=== PATIENT | male | born 1985 | race Caucasian/White ===

== ENCOUNTER 2016-05-08 03:41 | Emergency (ER) | payer OTHER ==
[~2016-05-08] VITALS: Ht 170.2 cm; Wt 83.9 kg
[2016-05-08 03:41] VITALS: BP 156/86; PULSE 114; RESP 20; TEMP 99.7; O2SAT 96
[~2016-05-08 03:41] MED LIST: IBUP-1969 PO; LEVO500T20 PO
--- NOTE | 2016-05-08 03:45 | NUR ---
Patient to ER bed 3 to gown for evaluation. Side rails up. Report given to SELVIN MCKEON.
--- NOTE | 2016-05-08 04:15 | NUR ---
Pt presents to ED with c/o generalized body ache 6/10 and fever. A&Ox4, denies SOB or chestpain, denies N/V/D. Skin intact. Ambulatory. Will continue to monitor
--- NOTE | 2016-05-08 04:20 | NUR ---
MD Thomas at bedside examining pt
[2016-05-08] MEDS ORDERED: IBUPROFEN 800 MG TABLET PO ONE (04:30)
[2016-05-08 05:16] LABS: STREPTOCOCCUS A SCREEN (RAPID) POSITIVE (NEGATIVE)
[2016-05-08 05:21] LABS: INFLUENZA A&B ANTIGEN SCREEN NEGATIVE FOR A & B (NEGATIVE)
[2016-05-08] MEDS ORDERED: cefTRIAXone 1 GM VIAL IM ONE (05:30)
[2016-05-08 05:45] VITALS: BP 140/82; PULSE 92; RESP 18; TEMP 98.6; O2SAT 97
--- NOTE | 2016-05-08 05:46 | NUR ---
Patient given written and verbal discharge instructions and verbalizes understanding. ER MD Thomas discussed with patient the results and treatment provided. Patient in stable condition. ID arm band removed. Rx of motrin given. Patient educated on pain management and to follow up with PMD. Pain Scale 0/10. Opportunity for questions provided and answered.
== END 2016-05-08 05:45 | disposition home or self-care (01) ==
LOC: SED 03:41
DX: J02.0 Streptococcal pharyngitis (principal); Z88.0 Allergy status to penicillin
CPT/HCPCS: 36415; 86403; 86710; 96372; 99284; J0696

== ENCOUNTER 2016-05-09 00:03 | Emergency (ER) | payer OTHER ==
[~2016-05-09] VITALS: Ht 170.2 cm; Wt 83.9 kg
[2016-05-09 00:03] VITALS: BP_SYST 152
[2016-05-09] MEDS ORDERED: AZITHROMYCIN 250 MG TABLET PO ONE (01:00)
[2016-05-09] MEDS ORDERED: DIPHENHYDRAMINE INJ 50 MG/ML VIAL IM ONE (01:00)
[2016-05-09] MEDS ORDERED: MORPHINE SULFATE 10 MG/ML VIAL IM ONE (01:00)
[2016-05-09] MEDS ORDERED: NACL 0.9% 1,000 ML IV ONE (01:14)
[2016-05-09] MEDS ORDERED: DIPHENHYDRAMINE INJ 50 MG/ML VIAL IVP ONE (01:15)
[2016-05-09] MEDS ORDERED: MORPHINE 4 MG/ML INJ. SYRINGE IVP ONE (01:15)
[2016-05-09] MEDS ORDERED: DIPHENHYDRAMINE INJ 50 MG/ML VIAL ONE (01:23)
[2016-05-09] MEDS ORDERED: ACETAMINOPHEN 325 MG TABLET PO ONE (02:30)
[2016-05-09] MEDS ORDERED: LIDOCAINE VISCOUS 2%, 15 ML UDC MM ONE (03:45)
[2016-05-09 03:50] VITALS: BP_SYST 136
== END 2016-05-09 03:50 | disposition home or self-care (01) ==
LOC: SED 00:03
DX: R50.9 Fever, unspecified (principal)
CPT/HCPCS: 96361; 96374; 96375; 99284; J1200; J2001; J2270; J7030; Q0144

== ENCOUNTER 2017-05-29 07:31 | Emergency (ER) | payer OTHER ==
[~2017-05-29] VITALS: Ht 170.2 cm; Wt 90.7 kg
[2017-05-29 07:40] VITALS: BP_SYST 155
[2017-05-29] MEDS ORDERED: IPRATROPIUM/ALBUTEROL SULFATE 3 ML AMPUL.NEB INH ONE (08:15)
[2017-05-29 08:25] LABS: BASOPHILS # (AUTO) 0.1 K/uL (0.0-0.2); BASOPHILS % (AUTO) 0.8 % (0.0-2.0); EOSINOPHILS # (AUTO) 0.4 K/uL (0.0-0.4); EOSINOPHILS % (AUTO) 5.8 % (0.0-4.0); HEMATOCRIT 43.9 % (36-54); HEMOGLOBIN 15.1 g/dL (14.0-18.0); LYMPHOCYTES # (AUTO) 2.4 K/uL (1.0-5.5); LYMPHOCYTES % (AUTO) 37.2 % (20.5-51.5); MEAN CORPUSCULAR HEMOGLOBIN 30 pg (27-31); MEAN CORPUSCULAR HGB CONC 34 % (32-36); MEAN CORPUSCULAR VOLUME 88 fL (79.0-98.0); MONOCYTES # (AUTO) 0.5 K/uL (0.0-1.0); NEUTROPHILS # (AUTO) 2.9 K/uL (1.8-7.7); NEUTROPHILS % (AUTO) 48.2 % (40.0-70.0); PLATELET COUNT (AUTO) 286 K/uL (130-430); RED BLOOD CELL COUNT(AUTO) 4.99 MIL/uL (4.2-6.2); RED CELL DISTRIBUTION WIDTH 11.6 % (9.0-15.0); WHITE BLOOD COUNT (AUTO) 6.3 K/uL (4.8-10.8)
[2017-05-29 08:37] LABS: ANION GAP 7 (5-15); CALCIUM 9.4 mg/dL (8.4-11.0); CHLORIDE 102 mmol/L (98-107); CREATININE 0.94 mg/dL (0.55-1.30); GLUCOSE 120 mg/dL (70-99); POTASSIUM 4.4 mmol/L (3.5-5.1); SODIUM SERUM 138 mmol/L (136-145); UREA NITROGEN, BLOOD 12 mg/dL (8-21)
[2017-05-29 08:38] LABS: GFR AFRICAN AMERICAN 120 mL/min (>90)
[2017-05-29 08:39] LABS: INR 0.9 (0.80-1.20); PROTHROMBIN TIME 9.5 SECS (9.5-12.5)
[2017-05-29 08:45] LABS: ALANINE AMINOTRANSFERASE 67 U/L (12-78); ALBUMIN 3.9 g/dL (3.4-4.8); ASPARTATE AMINOTRANSFERASE 17 U/L (10-37); TOTAL BILIRUBIN 0.2 mg/dL (0.0-1.0)
[2017-05-29 09:05] VITALS: BP_SYST 128
== END 2017-05-29 09:05 | disposition home or self-care (01) ==
LOC: SED 07:31
DX: R07.89 Other chest pain (principal); R03.0 Elevated blood-pressure reading, without diagnosis of hypertension; Z88.0 Allergy status to penicillin; F17.200 Nicotine dependence, unspecified, uncomplicated
CPT/HCPCS: 36415; 71045; 80053; 83880; 84484; 85025; 85379; 85610-TC; 93005; 94640; 99285

== ENCOUNTER 2017-10-09 11:25 | Emergency (ER) | payer SELFPAY ==
[~2017-10-09] VITALS: Ht 170.2 cm; Wt 86.2 kg
[2017-10-09 11:42] VITALS: BP_SYST 151
[2017-10-09 13:02] LABS: BASOPHILS % (AUTO) 0.7 % (0.0-2.0); EOSINOPHILS # (AUTO) 0.2 K/uL (0.0-0.4); EOSINOPHILS % (AUTO) 3.8 % (0.0-4.0); HEMATOCRIT 43.6 % (36-54); HEMOGLOBIN 15.4 g/dL (14.0-18.0); LYMPHOCYTES % (AUTO) 32.1 % (20.5-51.5); MEAN CORPUSCULAR HEMOGLOBIN 31 pg (27-31); MEAN CORPUSCULAR HGB CONC 35 % (32-36); MEAN CORPUSCULAR VOLUME 89 fL (79.0-98.0); MONOCYTES # (AUTO) 0.5 K/uL (0.0-1.0); MONOCYTES % (AUTO) 8.5 % (1.7-9.3); NEUTROPHILS # (AUTO) 3.4 K/uL (1.8-7.7); NEUTROPHILS % (AUTO) 54.9 % (40.0-70.0); PLATELET COUNT (AUTO) 282 K/uL (130-430); RED CELL DISTRIBUTION WIDTH 11.8 % (9.0-15.0); WHITE BLOOD COUNT (AUTO) 6.1 K/uL (4.8-10.8)
[2017-10-09 13:13] LABS: CALCIUM 9.1 mg/dL (8.4-11.0); CREATININE 1.02 mg/dL (0.55-1.30); POTASSIUM 4.2 mmol/L (3.5-5.1)
--- NOTE | 2017-10-09 13:15 | NUR ---
Patient to ER bed H1 to gown for evaluation. Side rails up.
[2017-10-09 13:18] LABS: ALBUMIN 4.1 g/dL (3.4-4.8); TOTAL BILIRUBIN 0.3 mg/dL (0.0-1.0)
--- NOTE | 2017-10-09 13:20 | NUR ---
Pt brought by family, A&Ox4, pt presents to ER with cough and chest pain only with inspiration, VS WNL, SOB with exertion, cap refill <3, VS WNL, afebrile.
[2017-10-09 13:25] LABS: PROTHROMBIN TIME 9.8 SECS (9.5-12.5)
--- NOTE | 2017-10-09 13:45 | NUR ---
Dr Vallejo at bedside examining patient
[2017-10-09] MEDS ORDERED: IPRATROPIUM/ALBUTEROL SULFATE 3 ML AMPUL.NEB INH ONE (14:00)
--- NOTE | 2017-10-09 14:00 | NUR ---
Pt moved to room 08
--- NOTE | 2017-10-09 14:00 | NUR ---
RT at bedside
--- NOTE | 2017-10-09 14:30 | NUR ---
Pt on stable condition, VS WNL.
[2017-10-09] MEDS ORDERED: HYDROcodone/ACETAMIN 5-325 MG TAB (NORCO/ VICODIN) PO ONE (14:45)
--- NOTE | 2017-10-09 15:15 | NUR ---
Patient given written and verbal discharge instructions and verbalizes understanding. ER MD discussed with patient the results and treatment provided. Patient in stable condition. ID arm band removed. IV catheter removed intact and dressing applied, no active bleeding. No Rx of Promethazine ,Medrol ,Albuterol,Augmentin given. Patient educated on pain management and to follow up with PMD. Pain Scale 2/10 tolerable for patient . Opportunity for questions provided and answered. Medication side effect fact sheet provided.
[2017-10-09 15:19] VITALS: BP_SYST 148
--- NOTE | 2017-10-10 09:59 | NUR ---
Patient called complaining that he was given a prescription for Augmentin to which he is allergic. This was discussed with Dr. Magana, new Rx given for Bactrim Ds 1 tab PO Bid x 10 days which was called into [facility] in [place] [phone] per patient request.
== END 2017-10-09 15:19 | disposition home or self-care (01) ==
LOC: SED 11:26
DX: J20.9 Acute bronchitis, unspecified (principal); R03.0 Elevated blood-pressure reading, without diagnosis of hypertension; R74.0 Nonspecific elevation of levels of transaminase and lactic acid dehydrogenase [LDH]; F17.210 Nicotine dependence, cigarettes, uncomplicated; Z88.2 Allergy status to sulfonamides
CPT/HCPCS: 36415; 71045; 80053; 83880; 84484; 85025; 85610; 93005; 94640; 99285; J7620

== ENCOUNTER 2017-12-05 06:24 | Emergency (ER) | payer SELFPAY ==
[~2017-12-05] VITALS: Ht 170.2 cm; Wt 88.5 kg
[2017-12-05 06:45] VITALS: BP_SYST 154
--- NOTE | 2017-12-05 06:55 | NUR ---
Patient to ER bed 7 to gown for evaluation. Side rails up.
--- NOTE | 2017-12-05 07:00 | NUR ---
KAYLAN Olmstead at bedside examining patient.
--- NOTE | 2017-12-05 07:05 | NUR ---
Pt presents to ED c/o R inguinal skin induration. Pt has mild pain no acute distress noted. No med hx.
--- NOTE | 2017-12-05 07:11 | NUR ---
Patient given written and verbal discharge instructions and verbalizes understanding. ER MD discussed with patient the results and treatment provided. Patient in stable condition. ID arm band removed. Rx of Bactrim given. Patient educated on pain management and to follow up with PMD. Pain Scale 3. Opportunity for questions provided and answered. Medication side effect fact sheet provided.
[2017-12-05 07:16] VITALS: BP_SYST 154
== END 2017-12-05 07:16 | disposition home or self-care (01) ==
LOC: SED 06:24
DX: L73.8 Other specified follicular disorders (principal); Z88.0 Allergy status to penicillin
CPT/HCPCS: 99283

== ENCOUNTER 2018-02-16 20:45 | Emergency (ER) | payer SELFPAY ==
[~2018-02-16] VITALS: Ht 172.7 cm; Wt 93.0 kg
[2018-02-16 21:09] VITALS: BP_SYST 159
--- NOTE | 2018-02-16 21:09 | NUR ---
Pt placed to ER bed 05. Pt states that earlier today he was loading equipment into a truck and it slipped, so he and a work partner had to catch it. Since then he has been experiencing Right inguinal pain. Denies testicular pain or swelling.
--- NOTE | 2018-02-16 21:30 | NUR ---
Dr. Arias at bedside to examine pt.
[2018-02-16] MEDS ORDERED: KETOROLAC TROMETHAMINE 60 MG/2 ML VIAL IM ONE (22:00)
--- NOTE | 2018-02-16 22:11 | NUR ---
Pt to CT via W/C.
--- NOTE | 2018-02-16 22:21 | NUR ---
Pt returns from CT.
[2018-02-16 22:22] LABS: BILIRUBIN,URINE NEGATIVE (NEGATIVE); BLOOD, URINE NEGATIVE (NEGATIVE); CLARITY/URINE CLEAR (CLEAR); COLOR,URINE YELLOW (YELLOW); GLUCOSE,URINE NEGATIVE (NEGATIVE); KETONES,URINE NEGATIVE (NEGATIVE); LEUKOCYTE ESTERASE ,URINE NEGATIVE (NEGATIVE); NITRITE, URINE NEGATIVE (NEGATIVE); PROTEIN URINE NEGATIVE (NEGATIVE); UROBILINOGEN,URINE 0.2 (0.2-1.0)
--- NOTE | 2018-02-16 23:30 | NUR ---
Pt c/o pain 07/06. Offered pain medication, but states pain is tolerable and will get his Rx filled.
[2018-02-16 23:45] VITALS: BP_SYST 140
--- NOTE | 2018-02-16 23:45 | NUR ---
Patient given written and verbal discharge instructions and verbalizes understanding. ER MD discussed with patient the results and treatment provided. Patient in stable condition. ID arm band removed. Rx of Flexeril, Ibuprofen, [place] given. Patient educated on pain management and to follow up with PMD. Pain Scale 5/10. Opportunity for questions provided and answered. Medication side effect fact sheet provided.
== END 2018-02-16 23:45 | disposition home or self-care (01) ==
LOC: SED 20:45
DX: S39.011A Strain of muscle, fascia and tendon of abdomen, initial encounter (principal); R03.0 Elevated blood-pressure reading, without diagnosis of hypertension; Z88.0 Allergy status to penicillin; X50.0XXA Overexertion from strenuous movement or load, initial encounter; Y93.89 Activity, other specified; Y92.89 Other specified places as the place of occurrence of the external cause; Y99.8 Other external cause status
CPT/HCPCS: 74176; 81003; 96372; 99284; J1885; 99285

== ENCOUNTER 2018-05-06 13:17 | Emergency (ER) | payer MEDICAID ==
[~2018-05-06] VITALS: Ht 172.7 cm; Wt 95.3 kg
[2018-05-06 13:17] VITALS: BP_SYST 126
[2018-05-06 14:44] LABS: BASOPHILS % (AUTO) 0.9 % (0.0-2.0); EOSINOPHILS # (AUTO) 0.2 K/uL (0.0-0.4); HEMATOCRIT 45.3 % (36-54); HEMOGLOBIN 15.7 g/dL (14.0-18.0); LYMPHOCYTES # (AUTO) 2.3 K/uL (1.0-5.5); LYMPHOCYTES % (AUTO) 39.6 % (20.5-51.5); MEAN CORPUSCULAR HEMOGLOBIN 31 pg (27-31); MEAN CORPUSCULAR HGB CONC 35 % (32-36); MEAN CORPUSCULAR VOLUME 89 fL (79.0-98.0); MONOCYTES # (AUTO) 0.5 K/uL (0.0-1.0); MONOCYTES % (AUTO) 8.3 % (1.7-9.3); NEUTROPHILS # (AUTO) 2.7 K/uL (1.8-7.7); NEUTROPHILS % (AUTO) 47.2 % (40.0-70.0); PLATELET COUNT (AUTO) 308 K/uL (130-430); RED CELL DISTRIBUTION WIDTH 12.4 % (9.0-15.0); WHITE BLOOD COUNT (AUTO) 5.7 K/uL (4.8-10.8)
[2018-05-06 14:45] LABS: BASOPHILS # (AUTO) 0.1 K/uL (0.0-0.2); CALCIUM 9.1 mg/dL (8.4-11.0); CREATININE 0.79 mg/dL (0.55-1.30); POTASSIUM 4.1 mmol/L (3.5-5.1)
[2018-05-06 14:50] LABS: ALBUMIN 4.3 g/dL (3.4-4.8); TOTAL BILIRUBIN 0.4 mg/dL (0.0-1.0)
[2018-05-06 15:30] VITALS: BP_SYST 131
== END 2018-05-06 15:30 | disposition home or self-care (01) ==
LOC: SED 13:17
DX: G56.03 Carpal tunnel syndrome, bilateral upper limbs (principal); Z88.0 Allergy status to penicillin; Z79.899 Other long term (current) drug therapy
CPT/HCPCS: 36415; 80053; 85025; 99283

== ENCOUNTER 2019-11-13 05:18 | Emergency (ER) | payer SELFPAY ==
[~2019-11-13] VITALS: Ht 170.2 cm; Wt 97.5 kg
[2019-11-13 05:31] VITALS: BP_SYST 153
--- NOTE | 2019-11-13 05:31 | NUR ---
Patient to ER bed 3 to gown for evaluation. Side rails up.
--- NOTE | 2019-11-13 05:32 | NUR ---
Patient came to ER. C/O Chest wall pain x 2 days. Patient states " had left chest pain for 2 days, on and off, no heart problems." AA/O,X4, left chest pain, pain rate 7/10, Stat EKG at bedside and place patient on night monitor and pulse ox.
--- NOTE | 2019-11-13 05:39 | NUR ---
ER Dr. Encinas at bedside examining patient.
[2019-11-13] MEDS ORDERED: ASPIRIN 81 MG TAB.CHEW PO ONE (05:45)
--- NOTE | 2019-11-13 05:47 | NUR ---
Blood for labwork drawn from vehicle body maker. Patient tolerated well.
[2019-11-13 06:04] LABS: LYMPHOCYTES # (AUTO) 3.7 K/uL (1.0-5.5)
[2019-11-13] MEDS ORDERED: ASPIRIN 81 MG TAB.CHEW ONE (06:07)
[2019-11-13 06:08] LABS: BASOPHILS # (AUTO) 0.1 K/uL (0.0-0.2); BASOPHILS % (AUTO) 1.3 % (0.0-2.0); EOSINOPHILS # (AUTO) 0.4 K/uL (0.0-0.4); EOSINOPHILS % (AUTO) 3.8 % (0.0-4.0); HEMATOCRIT 40.8 % (36-54); HEMOGLOBIN 14.7 g/dL (14.0-18.0); LYMPHOCYTES % (AUTO) 39.6 % (20.5-51.5); MEAN CORPUSCULAR HEMOGLOBIN 31 pg (27-31); MEAN CORPUSCULAR HGB CONC 36 % (32-36); MEAN CORPUSCULAR VOLUME 87 fL (79.0-98.0); MONOCYTES # (AUTO) 0.7 K/uL (0.0-1.0); MONOCYTES % (AUTO) 7.3 % (1.7-9.3); NEUTROPHILS # (AUTO) 4.5 K/uL (1.8-7.7); PLATELET COUNT (AUTO) 235 K/uL (130-430); RED BLOOD CELL COUNT(AUTO) 4.66 MIL/uL (4.2-6.2); RED CELL DISTRIBUTION WIDTH 12.7 % (9.0-15.0); WHITE BLOOD COUNT (AUTO) 9.3 K/uL (4.8-10.8)
--- NOTE | 2019-11-13 06:08 | NUR ---
X-ray at bedside.
[2019-11-13 06:12] LABS: CREATININE 0.93 mg/dL (0.55-1.30); POTASSIUM 3.5 mmol/L (3.5-5.1)
[2019-11-13 06:18] LABS: ALBUMIN 4.1 g/dL (3.4-4.8); TOTAL BILIRUBIN 0.4 mg/dL (0.0-1.0)
--- NOTE | 2019-11-13 07:08 | NUR ---
Patient given written and verbal discharge instructions and verbalizes understanding. ER MD discussed with patient the results and treatment provided. Patient in stable condition. ID arm band removed. No Rx given. Patient educated on pain management and to follow up with PMD. Pain Scale 0/10. Opportunity for questions provided and answered. Medication side effect fact sheet provided.
[2019-11-13 07:09] VITALS: BP_SYST 133
== END 2019-11-13 07:08 | disposition home or self-care (01) ==
LOC: SED 05:18
DX: R07.89 Other chest pain (principal)
CPT/HCPCS: 36415; 71045; 80053; 83880; 84484; 85025; 93005; 99285

== ENCOUNTER 2020-12-22 19:52 | Inpatient (IN) | payer BC, SELFPAY ==
[~2020-12-22] VITALS: Ht 170.2 cm; Wt 81.6 kg
[2020-12-22 20:12] VITALS: BP_SYST 154; BP_SYST 163
[2020-12-22] MEDS ORDERED: ASCO500T20 PO (20:18)
--- NOTE | 2020-12-22 21:09 | NUR ---
Placed in room 08.Placed on bar back, blood pressure machine and pulse oximeter. To gown for exam. Side rails up. Report given to MARISEL.
--- NOTE | 2020-12-22 21:09 | NUR ---
PT ARRIVED IN ER WITH COMPLAINTS OF UPPER EPIGASTRIC PAIN SINCE 1400 TODAY AFTER LUNCH. THIS IS THE FIRST TIME HE HAS THE PAIN. - ABDOMINAL PAIN HISTORY. PT STATES HE HAS NAUSEA AND ONE EPISODE OF VOMITING TODAY. 12/06 PAIN. NO OTHER COMPLAINSTS AT THIS TIME
--- NOTE | 2020-12-22 22:40 | NUR ---
ER Dr. GROSSMAN at bedside examining patient.
[2020-12-22] MEDS ORDERED: MORPHINE 4 MG INJ. 4 MG/ML VIAL IVP ONE (23:00)
[2020-12-22] MEDS ORDERED: NACL 0.9% 1,000 ML IV ONE (23:00)
[2020-12-22] MEDS ORDERED: ONDANSETRON HCL 4 MG/2 ML VIAL IVP ONE (23:00)
[2020-12-22] MEDS ORDERED: KETOROLAC TROMETHAMINE 30 MG VIAL IVP ONE (23:00)
--- NOTE | 2020-12-22 23:21 | NUR ---
# 20 gauge angiocath placed to RAC. Use of asceptic technique. Opsite placed over site. Blood return noted. Blood for lab drawn from site. Flushed with 10 cc of normal saline. No evidence of infiltration noted. Patient tolerated well.
[2020-12-22 23:36] LABS: BILIRUBIN,URINE NEGATIVE (NEGATIVE); BLOOD, URINE NEGATIVE (NEGATIVE); CLARITY/URINE CLEAR (CLEAR); COLOR,URINE YELLOW (YELLOW); GLUCOSE,URINE 3+ (NEGATIVE); KETONES,URINE 2+ (NEGATIVE); LEUKOCYTE ESTERASE ,URINE NEGATIVE (NEGATIVE); NITRITE, URINE NEGATIVE (NEGATIVE); PROTEIN URINE TRACE (NEGATIVE); UROBILINOGEN,URINE 0.2 (0.2-1.0)
--- NOTE | 2020-12-22 23:45 | NUR ---
US at bedside
[2020-12-22 23:48] LABS: BACTERIA,URINE FEW /HPF (None Seen); RBC,URINE 0-3 /HPF (0-3); WBC,URINE NONE SEEN /HPF (0-3)
[2020-12-23 00:07] LABS: ALBUMIN 3.6 g/dL (3.4-4.8); CALCIUM 8.3 mg/dL (8.4-11.0); POTASSIUM 3.3 mmol/L (3.5-5.1); TOTAL BILIRUBIN 0.7 mg/dL (0.0-1.0)
[2020-12-23 00:10] LABS: BASOPHILS # (AUTO) 0.1 K/uL (0.0-0.2); BASOPHILS % (AUTO) 0.5 % (0.0-2.0); EOSINOPHILS # (AUTO) 0.4 K/uL (0.0-0.4); EOSINOPHILS % (AUTO) 3.6 % (0.0-4.0); HEMATOCRIT 38.7 % (36-54); HEMOGLOBIN 13.9 g/dL (14.0-18.0); LYMPHOCYTES # (AUTO) 1.9 K/uL (1.0-5.5); MEAN CORPUSCULAR HEMOGLOBIN 32 pg (27-31); MEAN CORPUSCULAR HGB CONC 36 % (32-36); MEAN CORPUSCULAR VOLUME 88 fL (79.0-98.0); MONOCYTES # (AUTO) 0.7 K/uL (0.0-1.0); MONOCYTES % (AUTO) 6.6 % (1.7-9.3); NEUTROPHILS # (AUTO) 7.1 K/uL (1.8-7.7); NEUTROPHILS % (AUTO) 70.3 % (40.0-70.0); RED BLOOD CELL COUNT(AUTO) 4.38 MIL/uL (4.2-6.2); WHITE BLOOD COUNT (AUTO) 10.1 K/uL (4.8-10.8)
[2020-12-23 00:19] LABS: PLATELET COUNT (AUTO) 209 K/uL (130-430)
[2020-12-23 00:53] LABS: CREATININE 0.84 mg/dL (0.55-1.30)
[2020-12-23] MEDS ORDERED: MORPHINE 2 MG/ML INJ. SYRINGE IVP ONE ×2 (01:15→02:00)
[2020-12-23] MEDS ORDERED: MORPHINE 4 MG INJ. 4 MG/ML VIAL IVP ONE (03:00)
[2020-12-23] MEDS ORDERED: ONDANSETRON HCL 4 MG/2 ML VIAL IVP PRN (03:00)
--- NOTE | 2020-12-23 03:01 | NUR ---
Patient will be admitted to care of [facility]. Admitted to TELE unit. PENDING ROOM ASSIGNMENT. Belongings list completed. Complete and up to date summary report printed. SBAR report to be given at bedside with opportunity for questions.
[2020-12-23] MEDS ORDERED: NACL 0.9% 1,000 ML IV ONE (03:15)
[2020-12-23] MEDS: KCL 20 mEq in D5/0.45NS 1000mL 1,000 ML IV SCH ×3 (04:13→22:49)
--- NOTE | 2020-12-23 05:57 | NUR ---
PT IS SLEEPING IN BED, AWARE OF THE ADMIT. VSS.
[2020-12-23] MEDS: MORPHINE 4 MG INJ. 4 MG/ML VIAL IVP PRN ×4 (07:24→22:50)
--- NOTE | 2020-12-23 07:34 | NUR ---
Medication reconciliation completed with information provided by pt. Any prior medication reconciliation on file was reviewed and corrected.
[2020-12-23 08:28] VITALS: BP_SYST 143
--- NOTE | 2020-12-23 08:30 | NUR ---
Patient will be admitted to care of . Admitted to medsurg unit. Will go to room 8. Belongings list completed. Complete and up to date summary report printed. SBAR report given at bedside with Zamzam opportunity for questions.
--- NOTE | 2020-12-23 08:35 | NUR ---
ADMITTED VIA GURNEY A 35 YEAR OLD MALE FOR ABDOMINAL PAIN. VITALS SIGNS STABLE. AFEBRILE. HAS IV ACCESS ON THE RT AC #20. RUNNING BOTH NORMAL SALINE AND POTASSIUM IV FLUIDS. ORIENTED TO THE ROOM. CALL LIGHTS WITHIN REACH. BED LOW POSITION, ALARMED AND LOCKED. WILL CONTINUE TO MONITOR PATIENTS STATUS.
[2020-12-23] MEDS: PANTOPRAZOLE SODIUM 40 MG/VIAL (PROTONIX) IVP SCH ×2 (09:53→20:27)
--- NOTE | 2020-12-23 11:00 | NUR ---
ADMISSION DATA DONE. ADMISSION ASSESSMENT DONE.
[2020-12-23 13:05] VITALS: BP_SYST 133
[2020-12-23 13:14] VITALS: BP_SYST 138
[2020-12-23] MEDS ORDERED: THIAMINE HCL 100 MG TABLET PO ONE (14:00)
[2020-12-23 16:50] VITALS: BP_SYST 130
[2020-12-23 17:57] VITALS: BP_SYST 129
--- NOTE | 2020-12-23 18:49 | NUR ---
PATIENT AAO 4. HAS IV ACCESS ON THE RT ac #20 potassium iv at 100cc/hr infusing on well. able to eat by himself. another urinal given at this time. endorsed to incoming nurse.
--- NOTE | 2020-12-23 19:10 | NUR ---
OPENING NOTES PATIENT RESTING, NO SIGNS OF DISTRESS NOTED. CALL LIGHT WITHIN REACH, PATIENT DEMONSTRATES PROPER USAGE OF CALL LIGHT, BED ALARM OFF PER PATIENT REQUEST, BED AT LOWEST POSITION, BED LOCKED. FALL, RESPIRATORY, ASPIRATION AND SAFETY PRECAUTIONS IN PLACE. DISCUSSED PLAN OF CARE WITH PATIENT. WILL CONTINUE TO MONITOR.
[2020-12-23 20:00] VITALS: BP_SYST 148
[2020-12-23] MEDS: ENOXAPARIN SODIUM 40 MG/0.4 ML SYRINGE SUBCUT SCH (20:30)
--- NOTE | 2020-12-23 23:26 | NUR ---
PATIENT PROVIDED WITH JELLOS AND APPLE JUICE. NO OTHER NEEDS AT THIS TIME. WILL CONTINUE TO MONITOR.
[2020-12-24] VITALS: BP_SYST 124
[2020-12-24] MEDS: MORPHINE 4 MG INJ. 4 MG/ML VIAL IVP PRN ×4 (05:59→22:10)
--- NOTE | 2020-12-24 06:57 | NUR ---
CLOSING NOTES PATIENT RESTING, NO SIGNS OF DISTRESS NOTED. CALL LIGHT WITHIN REACH, BED ALARM OFF PER PATIENT REQUEST, BED AT LOWEST POSITION, BED LOCKED. FALL, ASPIRATION, RESPIRATORY, AND SAFETY PRECAUTIONS IN PLACE THROUGHOUT SHIFT. ALL NEEDS MET THROUGHOUT SHIFT. WILL ENDORSE CARE TO ONCOMING SHIFT.
--- NOTE | 2020-12-24 07:32 | NUR ---
PATIENT AAOX 4. LUNGS BILATERALLY CLEAR. ABDOMEN SOFT AND NON DISTENDED. STILL HAS IV ACCESS ON THE RT AC 20 WITH D51/2NS +20KCL MEQ AT 100CC/HR INFUSING ON WELL. CALL LIGHTS WITHIN REACH. BED LOW POSITION, ALARMED AND LOCKED. VITALS SIGNS STABLE. AFEBRILE. WILL CONTINUE TO MONITOR PATIENTS STATUS.
[2020-12-24 07:48] LABS: CALCIUM 7.7 mg/dL (8.4-11.0); CREATININE 0.67 mg/dL (0.55-1.30); PHOSPHORUS 2.5 mg/dL (2.7-4.5); POTASSIUM 3.4 mmol/L (3.5-5.1)
[2020-12-24] MEDS: THIAMINE HCL 100 MG TABLET PO SCH (08:19)
[2020-12-24] MEDS: PANTOPRAZOLE SODIUM 40 MG/VIAL (PROTONIX) IVP SCH ×2 (08:19→21:11)
[2020-12-24] MEDS: KCL 20 mEq in D5/0.45NS 1000mL 1,000 ML IV SCH ×2 (08:33→21:13)
[2020-12-24 08:35] LABS: HEMATOCRIT 35.3 % (36-54); MEAN CORPUSCULAR VOLUME 86 fL (79.0-98.0); PLATELET COUNT (AUTO) 299 K/uL (130-430); RED BLOOD CELL COUNT(AUTO) 4.08 MIL/uL (4.2-6.2); RED CELL DISTRIBUTION WIDTH 13.3 % (9.0-15.0); WHITE BLOOD COUNT (AUTO) 11.9 K/uL (4.8-10.8)
[2020-12-24 09:03] VITALS: BP_SYST 121
[2020-12-24 09:32] LABS: HEMOGLOBIN 11.8 g/dL (14.0-18.0); MEAN CORPUSCULAR HEMOGLOBIN 29 pg (27-31)
[2020-12-24 09:33] LABS: MEAN CORPUSCULAR HGB CONC 33 % (32-36)
[2020-12-24] MEDS: chlordiazePOXIDE HCL 25 MG CAPSULE PO PRN ×2 (11:49→18:28)
--- NOTE | 2020-12-24 11:51 | NUR ---
patient had a shower. But patient is still in pain. Laying on bed and appears comfortable. Morphine 4mg IV given. And librium tablet was refused.
[2020-12-24 12:00] VITALS: BP_SYST 128
[2020-12-24 14:15] LABS: BASOPHILS % (MANUAL) 0 % (0-2); EOSINOPHILS % (MANUAL) 1 % (0-7); LYMPHOCYTES % (MANUAL) 13 % (20-46); MONOCYTES % (MANUAL) 10 % (0-11)
[2020-12-24] MEDS ORDERED: ACETAMINOPHEN 325 MG TABLET PO PRN (17:45)
--- NOTE | 2020-12-24 18:00 | NUR ---
ZOZYN IV GIVEN. TYLENOL 2 TABS GIVEN. AND LIBRIUM TABLET GIVEN.
[2020-12-24 18:02] VITALS: BP_SYST 150
--- NOTE | 2020-12-24 18:20 | NUR ---
DR MEDEL CAME EVALUATE PATIENTS STATUS.
[2020-12-24] MEDS: PIPERACILLIN/TAZO 3.375/DEX-IS 50 ML IV SCH (18:27)
--- NOTE | 2020-12-24 18:40 | NUR ---
BLOOD CULTURE DONE. NEED URINE FOR CULTURE.
[2020-12-24] MEDS ORDERED: POTASSIUM CHLORIDE 20 MEQ TAB.PRT.SR PO ONE (19:30)
--- NOTE | 2020-12-24 19:36 | NUR ---
ENDORSED TO INCOMING NURSE YISEL MCKEON. LATEST TEMP 97.4. ICE PACKS ON THE HEAD AND ON ARMPIT
[2020-12-24 20:00] VITALS: BP_SYST 132
--- NOTE | 2020-12-24 20:35 | NUR ---
SPOKE TO DR. MEDEL, RECEIVED NEW ORDERS OF DILAUDID 2MG IVP Q4P SEVERE AND TO DISCONTINUE MORPHINE AND CHANGE PATIENT STATUS TO TELE.
--- NOTE | 2020-12-24 20:40 | NUR ---
HIGH ALERT NOTE: Called Dr. MEDEL back at [phone] identified within the medical roster to verify physician authenticity.
[2020-12-24] MEDS ORDERED: HYDROmorphone 2 MG/ML VIAL IVP PRN (20:45)
[2020-12-24] MEDS: ENOXAPARIN SODIUM 40 MG/0.4 ML SYRINGE SUBCUT SCH (21:26)
--- NOTE | 2020-12-24 21:38 | NUR ---
COMMUNICATION W/ DR. GIANFRANCO MEDEL HAS PAGED BACK AT THIS TIME, HE WAS MADE AWARE THAT PATIENT VERBALIZED HE DOES NOT WANT DILAUDID FOR PAIN MEDICATION, OR TO BE PUT ON TELEMETRY UNIT, AND ALSO THAT HE WOULD LIKE TO HAVE THE SAME MORPHINE DOSE HE WAS GETTING EARLIER FOR HIS PAIN. DR. MEDEL AGREED, MD ORDERED TO D/C DILAUDID AND KEEP PATIENT ON MED-SURG UNIT, MD ALSO ORDERED MORPHINE 4 MG IVP Q4H PRN SEVERE PAIN. ALL ORDERS READ BACK, VERIFIED, AND ENTERED. PATIENT AND CHARGE NURSE WILL BE NOTIFIED.
--- NOTE | 2020-12-24 23:11 | NUR ---
PATIENT RESTING, NO SIGNS OF DISTRESS NOTED. PATIENT SITTING UP, ICE CHIPS AND WATER PROVIDED. WILL CONTINUE TO MONITOR.
[2020-12-25] VITALS: BP_SYST 126
[2020-12-25] MEDS: PIPERACILLIN/TAZO 3.375/DEX-IS 50 ML IV SCH ×5 (01:19→23:09)
[2020-12-25] MEDS: KCL 20 mEq in D5/0.45NS 1000mL 1,000 ML IV SCH ×2 (05:00→20:34)
[2020-12-25] MEDS: MORPHINE 4 MG INJ. 4 MG/ML VIAL IVP PRN ×5 (05:47→22:37)
[2020-12-25 06:20] LABS: BASOPHILS # (AUTO) 0.1 K/uL (0.0-0.2); BASOPHILS % (AUTO) 0.7 % (0.0-2.0); EOSINOPHILS # (AUTO) 0.3 K/uL (0.0-0.4); EOSINOPHILS % (AUTO) 2.5 % (0.0-4.0); HEMATOCRIT 35.8 % (36-54); HEMOGLOBIN 12.7 g/dL (14.0-18.0); LYMPHOCYTES # (AUTO) 1.1 K/uL (1.0-5.5); LYMPHOCYTES % (AUTO) 10.4 % (20.5-51.5); MEAN CORPUSCULAR HEMOGLOBIN 31 pg (27-31); MEAN CORPUSCULAR HGB CONC 36 % (32-36); MEAN CORPUSCULAR VOLUME 89 fL (79.0-98.0); MONOCYTES # (AUTO) 0.8 K/uL (0.0-1.0); MONOCYTES % (AUTO) 7.1 % (1.7-9.3); NEUTROPHILS # (AUTO) 8.5 K/uL (1.8-7.7); NEUTROPHILS % (AUTO) 79.3 % (40.0-70.0); PLATELET COUNT (AUTO) 206 K/uL (130-430); RED BLOOD CELL COUNT(AUTO) 4.03 MIL/uL (4.2-6.2); WHITE BLOOD COUNT (AUTO) 10.8 K/uL (4.8-10.8)
--- NOTE | 2020-12-25 07:06 | NUR ---
CLOSING NOTES PATIENT RESTING, NO FEVER NOTED. CALL LIGHT WITHIN REACH, BED ALARM OFF PER PATIENT REQUEST, BED AT LOWEST POSITION, BED LOCKED. FALL, ASPIRATION, RESPIRATORY, AND SAFETY PRECAUTIONS IN PLACE THROUGHOUT SHIFT. ALL NEEDS MET THROUGHOUT SHIFT. WILL ENDORSE CARE TO ONCOMING SHIFT.
[2020-12-25 08:00] VITALS: BP_SYST 111
--- NOTE | 2020-12-25 08:00 | NUR ---
NOTES PATIENT AAOX 4. VITALS SIGNS STABLE. AFEBRILE. STILL HAS IV ACCESS ON THE RT AC. D51/2 NS +KCL 20MEQ AT 100CC/HR INFUSING ON WELL. CALL LIGHTS WITHIN REACH. BED LOW POSITION, ALARMED AND LOCKED. WILL CONTINUE
[2020-12-25] MEDS: PANTOPRAZOLE SODIUM 40 MG/VIAL (PROTONIX) IVP SCH ×2 (08:13→20:34)
[2020-12-25] MEDS: THIAMINE HCL 100 MG TABLET PO SCH (08:13)
[2020-12-25 08:32] LABS: CREATININE 0.74 mg/dL (0.55-1.30); POTASSIUM 3.5 mmol/L (3.5-5.1)
[2020-12-25 12:00] VITALS: BP_SYST 123
--- NOTE | 2020-12-25 18:00 | NUR ---
ZOZYN IV GIVEN. MADE COMFORTABLE. PAIN MED GIVEN
--- NOTE | 2020-12-25 19:20 | NUR ---
ENDORSED TO JOE MCKEON.
--- NOTE | 2020-12-25 19:30 | NUR ---
OPENING NOTE PATIENT IN BED WITH RESPIRATIONS EVEN AND UNLABORED ON RA. PT C/O FEELING "HOT". TEMPERATURE TAKEN AND WNL. ICE PACKS GIVEN AND PLACED UNDER ARMPITS FOR COOLING MEASURES. PT TOLERATED WELL. BED IN LOWEST AND LOCKED POSITION. AT BEDSIDE. CALL LIGHT WITHIN REACH. WILL CONTINUE TO MONITOR.
[2020-12-25 19:51] VITALS: BP_SYST 118
[2020-12-25 20:00] VITALS: BP_SYST 132
[2020-12-25] MEDS: ENOXAPARIN SODIUM 40 MG/0.4 ML SYRINGE SUBCUT SCH (21:16)
[2020-12-26] VITALS: BP_SYST 108
--- NOTE | 2020-12-26 02:45 | NUR ---
PRN PAIN MEDICATION ADMINISTERED PT TOLERATED WELL. WILL CONTINUE TO MONITOR.
[2020-12-26] MEDS: MORPHINE 4 MG INJ. 4 MG/ML VIAL IVP PRN ×5 (02:48→22:37)
--- NOTE | 2020-12-26 04:37 | NUR ---
ROUNDS PT IN BED WITH EYES CLOSED. RESPIRATIONS EVEN AND UNLABORED. IVF RUNNING. WILL CONTINUE TO MONITOR.
[2020-12-26] MEDS: KCL 20 mEq in D5/0.45NS 1000mL 1,000 ML IV SCH (05:23)
[2020-12-26] MEDS: PIPERACILLIN/TAZO 3.375/DEX-IS 50 ML IV SCH ×3 (05:23→17:50)
--- NOTE | 2020-12-26 07:30 | NUR ---
PATIENT IN BED, NO S/S OF DISTRESS, PATIENT STATES HE IS IN PAIN, WILL PROVIDE PAIN COVERAGE ORDERED/NEEDED, FULL LIQUID DIET, A/OX4, IV INTACT, SAFETY MEASURES IN PLACE, BED IN LOWEST LOCKED POSITION, BED ALARM ON, WILL CONTINUE TO MONITOR.
[2020-12-26 07:32] LABS: BASOPHILS # (AUTO) 0.1 K/uL (0.0-0.2); BASOPHILS % (AUTO) 1.7 % (0.0-2.0); EOSINOPHILS # (AUTO) 0.5 K/uL (0.0-0.4); EOSINOPHILS % (AUTO) 6.3 % (0.0-4.0); HEMATOCRIT 36.2 % (36-54); LYMPHOCYTES # (AUTO) 1.5 K/uL (1.0-5.5); LYMPHOCYTES % (AUTO) 19.6 % (20.5-51.5); MEAN CORPUSCULAR HEMOGLOBIN 32 pg (27-31); MEAN CORPUSCULAR HGB CONC 36 % (32-36); MEAN CORPUSCULAR VOLUME 88 fL (79.0-98.0); MONOCYTES # (AUTO) 0.7 K/uL (0.0-1.0); MONOCYTES % (AUTO) 8.8 % (1.7-9.3); NEUTROPHILS % (AUTO) 63.6 % (40.0-70.0); PLATELET COUNT (AUTO) 224 K/uL (130-430); RED CELL DISTRIBUTION WIDTH 12.7 % (9.0-15.0); WHITE BLOOD COUNT (AUTO) 7.8 K/uL (4.8-10.8)
--- NOTE | 2020-12-26 07:39 | NUR ---
closing note pt stable in bed. no signs of distress noted. will endorse to day rn.
[2020-12-26 08:00] VITALS: BP_SYST 103
[2020-12-26] MEDS: THIAMINE HCL 100 MG TABLET PO SCH (08:47)
[2020-12-26] MEDS: PANTOPRAZOLE SODIUM 40 MG/VIAL (PROTONIX) IVP SCH ×2 (08:47→21:17)
[2020-12-26 11:04] LABS: CALCIUM 8.6 mg/dL (8.4-11.0); CREATININE 0.86 mg/dL (0.55-1.30); POTASSIUM 3.8 mmol/L (3.5-5.1)
[2020-12-26 12:00] VITALS: BP_SYST 112
--- NOTE | 2020-12-26 13:10 | NUR ---
PATIENT BROUGHT CLEAN LINENS AND CHANGED BED WHILE PATIENT SHOWERED, TOLERATED WELL, BACK IN BED, MORPHINE GIVEN FOR ABDOMINAL PAIN, NO NEEDS AT THIS TIME
[2020-12-26 16:00] VITALS: BP_SYST 119
[2020-12-26] MEDS: NACL 0.9% 1,000 ML IV SCH (18:40)
--- NOTE | 2020-12-26 19:23 | NUR ---
PATIENT IN BED, NO S/S OF DISTRESS, IV INTACT PATENT RUNNING NS AT 75ML/HR, ENDORSING CONTINUATION OF CARE TO RECORD SEARCHER.
[2020-12-26 20:00] VITALS: BP_SYST 112
--- NOTE | 2020-12-26 20:00 | NUR ---
Opening notes Pt AAOx4, VSS, no s/s distress noted. Informed pt pain med due at 10pm. Call light within reach. Bed low, locked, siderail up x2. Pt ambulates to bathroom, steady gait. To monitor.
[2020-12-26] MEDS: ENOXAPARIN SODIUM 40 MG/0.4 ML SYRINGE SUBCUT SCH (21:19)
--- NOTE | 2020-12-26 22:30 | NUR ---
IV RE-INSERTION: Redness to IV site noted. Restarted on L.FA 22G. Successful after x1 attempt. Resumed current IVF of NS and regulated @ 75cc per hour. Will observe for any signs of infiltration. DC'd IV R.AC no bleeding noted.
--- NOTE | 2020-12-26 22:37 | NUR ---
Pain med Pt c/o abd pain 09/05. Pt medicated with Morphine 4mg IVP R. FA 22G as needed. Call light within reach. To monitor.
[2020-12-27] MEDS: PIPERACILLIN/TAZO 3.375/DEX-IS 50 ML IV SCH ×4 (00:17→18:00)
[2020-12-27 00:24] VITALS: BP_SYST 111
[2020-12-27] MEDS: MORPHINE 4 MG INJ. 4 MG/ML VIAL IVP PRN ×5 (02:37→18:52)
--- NOTE | 2020-12-27 06:52 | NUR ---
Closing notes Pt c/o pain R. lower abd throbbing pain, medicated with Morphine 4mg as needed. IVF infusing at ordered rate R.FA 22G clear and patent. Pt maintained Full liquid diet. Call light within reach. To endorse to AM nurse.
[2020-12-27] MEDS: NACL 0.9% 1,000 ML IV SCH (07:20)
[2020-12-27 08:00] VITALS: BP_SYST 114
[2020-12-27 08:14] LABS: BASOPHILS % (AUTO) 0.5 % (0.0-2.0); EOSINOPHILS # (AUTO) 0.4 K/uL (0.0-0.4); HEMOGLOBIN 12.6 g/dL (14.0-18.0); LYMPHOCYTES # (AUTO) 1.4 K/uL (1.0-5.5); LYMPHOCYTES % (AUTO) 19.8 % (20.5-51.5); MEAN CORPUSCULAR HEMOGLOBIN 31 pg (27-31); MEAN CORPUSCULAR HGB CONC 35 % (32-36); MEAN CORPUSCULAR VOLUME 89 fL (79.0-98.0); MONOCYTES # (AUTO) 0.7 K/uL (0.0-1.0); MONOCYTES % (AUTO) 10.3 % (1.7-9.3); NEUTROPHILS # (AUTO) 4.6 K/uL (1.8-7.7); NEUTROPHILS % (AUTO) 63.4 % (40.0-70.0); PLATELET COUNT (AUTO) 248 K/uL (130-430); RED BLOOD CELL COUNT(AUTO) 4.03 MIL/uL (4.2-6.2); RED CELL DISTRIBUTION WIDTH 13.1 % (9.0-15.0); WHITE BLOOD COUNT (AUTO) 7.3 K/uL (4.8-10.8)
[2020-12-27] MEDS: THIAMINE HCL 100 MG TABLET PO SCH (09:19)
[2020-12-27] MEDS: PANTOPRAZOLE SODIUM 40 MG/VIAL (PROTONIX) IVP SCH (09:19)
[2020-12-27 09:52] LABS: CREATININE 0.8 mg/dL (0.55-1.30); POTASSIUM 3.5 mmol/L (3.5-5.1)
[2020-12-27 12:00] VITALS: BP_SYST 130
[2020-12-27 16:00] VITALS: BP_SYST 131
[2020-12-27 18:13] VITALS: BP_SYST 125
[2020-12-27] MEDS ORDERED: THIA100T73 PO (18:28)
[2020-12-27] MEDS ORDERED: LIB25 PO (18:28)
--- NOTE | 2020-12-27 19:00 | NUR ---
D/C Patient Patient given medication reconciliation form and D/C instructions. Exit Care provided. Patient verbalized understanding. MD discussed with patient the results and treatment provided. Ambulatory with steady gait for discharge to home. Patient in stable condition, ID band removed. IV catheter removed, intact and dressing applied, no active bleeding. Rx of tylenol #3, Thiamine, and Librium given. Patient educated on pain management. All belongings sent with patient.
== END 2020-12-27 19:00 | disposition home or self-care (01) | DRG 439 ==
LOC: SED 19:52 → SMU 12-23 02:58 → STU 12-24 20:45 → SMU 12-24 23:33
PROVIDERS: ADMIT Family Medicine; ATTEND Family Medicine
DX: K85.90 Acute pancreatitis without necrosis or infection, unspecified (principal); E87.1 Hypo-osmolality and hyponatremia; R73.9 Hyperglycemia, unspecified; F10.20 Alcohol dependence, uncomplicated; Z20.822 Contact with and (suspected) exposure to COVID-19
CPT/HCPCS: 36415; 36600; 76376; 76700-TC; 80048; 80053; 81000; 82150; 82803-TC; 83690; 83735; 84100; 85007; 85025; 85027; 87040-TC; 87086; 93005; 96361; 96374; 96375; 96376; 99285; C9113; J1170; J1650; J1885; J2270; J2405; J2543

== ENCOUNTER 2021-09-18 20:46 | Emergency (ER) | payer BC ==
[~2021-09-18] VITALS: Ht 172.7 cm; Wt 85.7 kg
[~2021-09-18 20:46] MED LIST changes: +ASCO500T20 PO; -IBUP-1969 PO; -LEVO500T20 PO; +LIB25 PO; +THIA100T73 PO
[2021-09-18 21:09] VITALS: BP_SYST 157
--- NOTE | 2021-09-18 21:14 | NUR ---
PT FROM HOME WITH C/O UPPER LEFT CHEST PAIN INTERMITTENT FOR THE PAST 2 DAYS. REPORTS IT HAS BEEN CONSTANT FOR LAST 2 HOURS. RATES 7/10 AND NON-RADIATING. DENIES N/V, AND DENIES SOB. HISTORY OF UNMANAGED HTN, BP ON ARRIVAL 157/103. MADE AWARE OF BP. PT PLACED IN WAITING ROOM WAITING FOR BED PLACEMENT.
--- NOTE | 2021-09-18 21:29 | NUR ---
Patient to ER bed 03 to gown for evaluation. Side rails up. Report given to Ace MCKEON.
[2021-09-18 21:38] LABS: BASOPHILS # (AUTO) 0.1 K/uL (0.0-0.2); BASOPHILS % (AUTO) 1.1 % (0.0-2.0); EOSINOPHILS # (AUTO) 0.4 K/uL (0.0-0.4); EOSINOPHILS % (AUTO) 5.5 % (0.0-4.0); HEMATOCRIT 40.9 % (36-54); HEMOGLOBIN 14.7 g/dL (14.0-18.0); LYMPHOCYTES # (AUTO) 2.5 K/uL (1.0-5.5); MEAN CORPUSCULAR HEMOGLOBIN 31 pg (27-31); MEAN CORPUSCULAR HGB CONC 36 % (32-36); MEAN CORPUSCULAR VOLUME 86 fL (79.0-98.0); MONOCYTES # (AUTO) 0.4 K/uL (0.0-1.0); MONOCYTES % (AUTO) 6.4 % (1.7-9.3); NEUTROPHILS # (AUTO) 3.3 K/uL (1.8-7.7); PLATELET COUNT (AUTO) 250 K/uL (130-430); RED BLOOD CELL COUNT(AUTO) 4.77 MIL/uL (4.2-6.2); RED CELL DISTRIBUTION WIDTH 12.5 % (9.0-15.0); WHITE BLOOD COUNT (AUTO) 6.7 K/uL (4.8-10.8)
--- NOTE | 2021-09-18 21:41 | NUR ---
Pt in bed 3 at this time. Pt placed on pulse oximetry. Normal skin color for ethnicity. Respirations even and unlabored. Pt states Left sided chest pain intermittent x 2 days 09/05 sharp in nature w/ associated SOB. -N/V/D.
--- NOTE | 2021-09-18 21:43 | NUR ---
Pt ambulates independently with strong, steady gait.
--- NOTE | 2021-09-18 21:55 | NUR ---
MD at bedside speaking to patient
[2021-09-18 22:00] LABS: ANION GAP 8 (5-15); CALCIUM 9.2 mg/dL (8.4-11.0); CHLORIDE 100 mmol/L (98-107); CREATININE 1.06 mg/dL (0.55-1.30); GLUCOSE 261 mg/dL (70-99); POTASSIUM 3.7 mmol/L (3.5-5.1); UREA NITROGEN, BLOOD 16 mg/dL (8-21)
[2021-09-18 22:01] LABS: GFR AFRICAN AMERICAN 102 mL/min (>90)
[2021-09-18 22:09] LABS: ALANINE AMINOTRANSFERASE 30 U/L (12-78); ALBUMIN 3.9 g/dL (3.4-4.8); ASPARTATE AMINOTRANSFERASE 14 U/L (10-37); TOTAL BILIRUBIN 0.3 mg/dL (0.0-1.0)
[2021-09-18 22:11] LABS: SODIUM SERUM 136 mmol/L (136-145)
[2021-09-18 22:35] VITALS: BP_SYST 134
--- NOTE | 2021-09-18 22:36 | NUR ---
Patient given written and verbal discharge instructions and verbalizes understanding. ER MD discussed with patient the results and treatment provided. Patient in stable condition. ID arm band removed. Rx of given. Patient educated on pain management and to follow up with PMD. Pain Scale 3/10. Opportunity for questions provided and answered. Medication side effect fact sheet provided.
== END 2021-09-18 22:36 | disposition home or self-care (01) ==
LOC: SED 20:46
DX: R07.2 Precordial pain (principal); I10 Essential (primary) hypertension; Z88.0 Allergy status to penicillin; Z79.899 Other long term (current) drug therapy
CPT/HCPCS: 36415; 71045; 80053; 84484; 85025; 93005; 99285

== ENCOUNTER 2021-12-26 21:53 | Emergency (ER) | payer BC ==
[~2021-12-26] VITALS: Ht 170.2 cm; Wt 81.6 kg
[2021-12-26 21:56] VITALS: BP_SYST 141
--- NOTE | 2021-12-26 22:02 | NUR ---
Patient triaged and placed in waiting room. VSS and patient appears in no acute distress at this time. Accompanied by FRIENDS, awaiting available bed, and MD notified of need for MSE.
--- NOTE | 2021-12-26 22:03 | NUR ---
WALKED IN C/O LLQ ABDOMINAL PAIN AFTER DRINKING TONIGHT. +VOMITING. +BLOOD IN VOMIT. STATES FEELS LIKE THE LAST TIME HE HAD PANCREATITIS.
[2021-12-26 22:27] LABS: BASOPHILS # (AUTO) 0.1 K/uL (0.0-0.2); EOSINOPHILS # (AUTO) 0.1 K/uL (0.0-0.4); EOSINOPHILS % (AUTO) 1.1 % (0.0-4.0); HEMOGLOBIN 14.7 g/dL (14.0-18.0); LYMPHOCYTES # (AUTO) 1.3 K/uL (1.0-5.5); LYMPHOCYTES % (AUTO) 21.6 % (20.5-51.5); MEAN CORPUSCULAR HEMOGLOBIN 30 pg (27-31); MEAN CORPUSCULAR HGB CONC 36 % (32-36); MEAN CORPUSCULAR VOLUME 84 fL (79.0-98.0); MONOCYTES # (AUTO) 0.2 K/uL (0.0-1.0); MONOCYTES % (AUTO) 3.2 % (1.7-9.3); NEUTROPHILS # (AUTO) 4.4 K/uL (1.8-7.7); NEUTROPHILS % (AUTO) 73.1 % (40.0-70.0); PLATELET COUNT (AUTO) 267 K/uL (130-430); RED BLOOD CELL COUNT(AUTO) 4.87 MIL/uL (4.2-6.2); RED CELL DISTRIBUTION WIDTH 12.8 % (9.0-15.0)
[2021-12-26 22:37] LABS: CALCIUM 8.7 mg/dL (8.4-11.0); CREATININE 0.79 mg/dL (0.55-1.30); POTASSIUM 3.6 mmol/L (3.5-5.1)
[2021-12-26 22:43] LABS: ALBUMIN 4.5 g/dL (3.4-4.8); TOTAL BILIRUBIN 0.2 mg/dL (0.0-1.0)
--- NOTE | 2021-12-26 23:00 | NUR ---
PATIENT ALERT AND ORIENTED X 4. ANXIOUS. COMPLAINED ABOUT THE PAIN. AMBULATORY. AT THE BEDSIDE.
--- NOTE | 2021-12-26 23:11 | NUR ---
pt alert oriented x 4. no sign of respiratory distress. ambulatory and anxious accompany with his .
[2021-12-27] MEDS ORDERED: PANTOPRAZOLE SODIUM 40 MG/VIAL (PROTONIX) IVP ONE (01:45)
[2021-12-27] MEDS ORDERED: NACL 0.9% 1,000 ML IV ONE (01:45)
[2021-12-27] MEDS ORDERED: PROCHLORPERAZINE EDISYLATE 10 MG/2 ML VIAL IVP ONE (01:45)
[2021-12-27] MEDS ORDERED: MORPHINE SULFATE 10 MG/ML VIAL IVP ONE (01:45)
--- NOTE | 2021-12-27 02:00 | NUR ---
PATIENT IS ANXIOUS WAITING FOR RESULT. SPEAK MORE ABUT THE CONDITION
[2021-12-27 02:03] LABS: BILIRUBIN,URINE NEGATIVE (NEGATIVE); BLOOD, URINE NEGATIVE (NEGATIVE); CLARITY/URINE CLEAR (CLEAR); COLOR,URINE YELLOW (YELLOW); GLUCOSE,URINE 3+ (NEGATIVE); KETONES,URINE 1+ (NEGATIVE); LEUKOCYTE ESTERASE ,URINE NEGATIVE (NEGATIVE); NITRITE, URINE NEGATIVE (NEGATIVE); PROTEIN URINE NEGATIVE (NEGATIVE); UROBILINOGEN,URINE 0.2 (0.2-1.0)
[2021-12-27 02:31] LABS: BARBITURATE, URINE NEGATIVE (NEG <=200); BENZODIAZEPINE, URINE NEGATIVE (NEG <=150); CANNABINOID, URINE NEGATIVE (NEG <=50); COCAINE, URINE NEGATIVE (NEG <=150); METHAMPHETAMINES SCREEN,URINE NEGATIVE (NEG <=500); OPIATE, URINE NEGATIVE (NEG <=100); PHENCYCLIDINE SCREEN,URINE NEGATIVE (NEG <=25); UR TRICYCLIC ANTIDEPRESSANTS NEGATIVE (NEG <=300); URINE AMPHETAMINE NEGATIVE (NEG <=500); URINE METHADONE NEGATIVE (NEG <=200); URINE OXYCODONE SCREEN NEGATIVE (NEG <=100); URINE PROPOXYPHENE SCREEN NEGATIVE (NEG <=300)
[2021-12-27 03:35] LABS: BACTERIA,URINE FEW /HPF (None Seen); MUCUS,URINE None Seen /LPF (None Seen); RBC,URINE NONE SEEN /HPF (0-3)
[2021-12-27 05:05] LABS: INR 0.9 (0.80-1.20); PROTHROMBIN TIME 9.8 SECS (9.5-12.5)
[2021-12-27] MEDS ORDERED: MORPHINE 4 MG INJ. 4 MG/ML VIAL IV ONE (05:15)
[2021-12-27 05:49] VITALS: BP_SYST 120
[2021-12-27 06:29] LABS: LACTATE DEHYDROGENASE 202 U/L (85-227); LIPASE 81 U/L (73-393)
--- NOTE | 2021-12-27 06:44 | NUR ---
patient left with his who is driving the car.
== END 2021-12-27 05:49 | disposition home or self-care (01) ==
LOC: SED 21:53
DX: R10.32 Left lower quadrant pain (principal); F10.129 Alcohol abuse with intoxication, unspecified; R73.9 Hyperglycemia, unspecified; I10 Essential (primary) hypertension; Z88.0 Allergy status to penicillin; Z79.899 Other long term (current) drug therapy; Y90.6 Blood alcohol level of 120-199 mg/100 ml
CPT/HCPCS: 99285; 80307; 80053; 81000; 83615; 83690; 85025; 85610; 85651; 85730; 86886; 86900; 86901; 36415; 74018; 74176; 96374; 71045; 96361; 96375; 76376; 96376; C9113; J0780; J2270 ×2; J7030

== ENCOUNTER 2022-04-27 18:48 | Emergency (ER) | payer SELFPAY ==
[~2022-04-27] VITALS: Ht 170.2 cm; Wt 83.9 kg
[2022-04-27 18:48] VITALS: BP_SYST 153
--- NOTE | 2022-04-27 18:48 | NUR ---
BROUGHT BACK TO BED #6 AND TRIAGED. REPORT GIVEN TO KAITY
--- NOTE | 2022-04-27 18:56 | NUR ---
36yo M here for chest pain x 1 week. Intermittent sharp pain to L chest, now worse and more consistent x today. 8/10 pain now. Denies fever, no cough, no shortness of breath. Clear bilat breath sounds. No respiratory distress. No peripheral edema
[2022-04-27 19:46] LABS: BASOPHILS % (AUTO) 0.6 % (0.0-2.0); EOSINOPHILS # (AUTO) 0.2 K/uL (0.0-0.4); EOSINOPHILS % (AUTO) 3.5 % (0.0-4.0); HEMATOCRIT 40.6 % (36-54); HEMOGLOBIN 14.2 g/dL (14.0-18.0); LYMPHOCYTES # (AUTO) 2.4 K/uL (1.0-5.5); LYMPHOCYTES % (AUTO) 38.7 % (20.5-51.5); MEAN CORPUSCULAR HEMOGLOBIN 30 pg (27-31); MEAN CORPUSCULAR HGB CONC 35 % (32-36); MEAN CORPUSCULAR VOLUME 86 fL (79.0-98.0); MONOCYTES # (AUTO) 0.4 K/uL (0.0-1.0); MONOCYTES % (AUTO) 6.3 % (1.7-9.3); NEUTROPHILS # (AUTO) 3.1 K/uL (1.8-7.7); NEUTROPHILS % (AUTO) 50.9 % (40.0-70.0); PLATELET COUNT (AUTO) 247 K/uL (130-430); RED BLOOD CELL COUNT(AUTO) 4.75 MIL/uL (4.2-6.2); WHITE BLOOD COUNT (AUTO) 6.1 K/uL (4.8-10.8)
[2022-04-27 19:48] LABS: ANION GAP 8 (5-15); CALCIUM 8.8 mg/dL (8.4-11.0); CHLORIDE 97 mmol/L (98-107); CREATININE 0.97 mg/dL (0.55-1.30); GLUCOSE 291 mg/dL (70-99); UREA NITROGEN, BLOOD 21 mg/dL (8-21)
[2022-04-27 19:51] LABS: GFR AFRICAN AMERICAN 113 mL/min (>90)
[2022-04-27 19:57] LABS: ALANINE AMINOTRANSFERASE 30 U/L (12-78); ALBUMIN 3.9 g/dL (3.4-4.8); TOTAL BILIRUBIN 0.3 mg/dL (0.0-1.0)
[2022-04-27 20:07] LABS: ASPARTATE AMINOTRANSFERASE 14 U/L (10-37)
--- NOTE | 2022-04-27 21:00 | NUR ---
Awake and alert. Resting at this time. 5/10 L chest pain. VS stable. No distress
[2022-04-27] MEDS ORDERED: IBUP-1969 PO (21:43)
--- NOTE | 2022-04-27 22:20 | NUR ---
Patient given written and verbal discharge instructions and verbalizes understanding. ER MD discussed with patient the results and treatment provided. Patient in stable condition. ID arm band removed. IV catheter removed intact and dressing applied, no active bleeding. Rx of ibuprofen given. Patient educated on pain management and to follow up with PMD. Pain Scale 5. Opportunity for questions provided and answered. Medication side effect fact sheet provided.
[2022-04-27 22:44] VITALS: BP_SYST 112
== END 2022-04-27 22:44 | disposition home or self-care (01) ==
LOC: SED 18:48
DX: R07.9 Chest pain, unspecified (principal); I10 Essential (primary) hypertension; Z88.0 Allergy status to penicillin; Z79.899 Other long term (current) drug therapy
CPT/HCPCS: 36415; 71045; 80053; 84484; 85025; 99284

== ENCOUNTER 2022-06-29 23:35 | Emergency (ER) | payer MEDICAID ==
[~2022-06-29] VITALS: Ht 170.2 cm; Wt 82.1 kg
[~2022-06-29 23:35] MED LIST changes: +IBUP-1969 PO
[2022-06-29 23:47] VITALS: BP_SYST 138
--- NOTE | 2022-06-29 23:50 | NUR ---
Patient triaged and placed in waiting room. VSS and patient appears in no acute distress at this time. Accompanied by self, awaiting available bed, and MD notified of need for MSE.
--- NOTE | 2022-06-30 01:09 | NUR ---
PT STATES HIS EYE IS GETTING "HAZY." MADE AWARE.
--- NOTE | 2022-06-30 01:24 | NUR ---
Patient to ER bed 07 to gown for evaluation. Side rails up. Report given to LINDA MAST.
--- NOTE | 2022-06-30 02:54 | NUR ---
ER at bedside examining patient.
[2022-06-30] MEDS ORDERED: TOBR5DRO7 RIGHT EYE (03:14)
[2022-06-30] MEDS ORDERED: HYDR-3917 PO (03:14)
[2022-06-30] MEDS ORDERED: DIPHTH,PERTUSS(ACELL),TET VAC 0.5 ML VIAL (Tdap) I.M. ONE (03:15)
--- NOTE | 2022-06-30 03:45 | NUR ---
Patient given written and verbal discharge instructions and verbalizes understanding. ER MD ZIEGLER discussed with patient the results and treatment provided. Patient in stable condition. ID arm band removed. Rx of NORCO AND TOBRAMYCIN given. Patient educated on pain management and to follow up with PMD. Pain Scale . Opportunity for questions provided and answered. Medication side effect fact sheet provided.
[2022-06-30 03:48] VITALS: BP_SYST 124
== END 2022-06-30 03:48 | disposition home or self-care (01) ==
LOC: SED 23:35
DX: S05.01XA Injury of conjunctiva and corneal abrasion without foreign body, right eye, initial encounter (principal); I10 Essential (primary) hypertension; Z88.0 Allergy status to penicillin; Z79.899 Other long term (current) drug therapy; W45.8XXA Other foreign body or object entering through skin, initial encounter; Y93.89 Activity, other specified; Y92.89 Other specified places as the place of occurrence of the external cause; Y99.8 Other external cause status
CPT/HCPCS: 90715; 99283

== ENCOUNTER 2022-08-28 19:11 | Emergency (ER) | payer MEDICAID ==
[~2022-08-28] VITALS: Ht 170.2 cm; Wt 81.6 kg
[~2022-08-28 19:11] MED LIST changes: +HYDR-3917 PO; +TOBR5DRO7 RIGHT EYE
[2022-08-28 19:23] VITALS: BP_SYST 130; PULSE 100; RESP 18; TEMP 97.7; O2SAT 98
[2022-08-28] MEDS ORDERED: KETOROLAC TROMETHAMINE 60 MG/2 ML VIAL IM ONE (20:15)
[2022-08-28] MEDS ORDERED: HYDROcodone/ACETAMIN 10-325 MG TAB PO ONE (21:30)
[2022-08-28] MEDS ORDERED: ACET1TAB93 PO (22:12)
[2022-08-28] MEDS ORDERED: IBUP-1971 PO (22:12)
[2022-08-28 22:35] VITALS: BP_SYST 129; PULSE 95; RESP 18; TEMP 97.7; O2SAT 98
== END 2022-08-28 22:35 | disposition home or self-care (01) ==
LOC: SED 19:11
DX: S62.360A Nondisplaced fracture of neck of second metacarpal bone, right hand, initial encounter for closed fracture (principal); Z88.0 Allergy status to penicillin; Z79.899 Other long term (current) drug therapy; X58.XXXA Exposure to other specified factors, initial encounter; Y93.89 Activity, other specified; Y92.89 Other specified places as the place of occurrence of the external cause; Y99.8 Other external cause status
CPT/HCPCS: 99284; 73110; 73130; 96372; 29125; J1885

== ENCOUNTER 2023-04-29 14:13 | Emergency (ER) | payer MEDICAID, OTHER ==
[~2023-04-29] VITALS: Ht 170.2 cm; Wt 83.9 kg
[~2023-04-29 14:13] MED LIST changes: +IBUP-1971 PO; +TOBR5DRO12 RIGHT EYE; -TOBR5DRO7 RIGHT EYE
[2023-04-29 14:15] VITALS: BP_SYST 124; PULSE 91; RESP 18; TEMP 96.7; O2SAT 97
[2023-04-29 15:05] LABS: EOSINOPHILS # (AUTO) 0.3 K/uL (0.0-0.4); RED CELL DISTRIBUTION WIDTH 12.9 % (9.0-15.0)
[2023-04-29 15:25] LABS: UREA NITROGEN, BLOOD 16 mg/dL (8-21)
[2023-04-29 15:35] LABS: ANION GAP 10 (5-15); CARBON DIOXIDE 24 mmol/L (23-29); CHLORIDE 92 mmol/L (98-107); GFR AFRICAN AMERICAN 122 mL/min (>90); POTASSIUM 4.6 mmol/L (3.5-5.1)
[2023-04-29 15:36] LABS: GFR NON AFRICAN-AMERICAN 101 mL/min (>90)
[2023-04-29 15:38] LABS: CALCIUM 6.9 mg/dL (8.4-11.0); GLUCOSE 598 mg/dL (74-106); SODIUM SERUM 126 mmol/L (136-145)
[2023-04-29 15:41] LABS: BASOPHILS % (AUTO) 0.3 % (0.0-2.0); EOSINOPHILS % (AUTO) 5.6 % (0.0-4.0); HEMATOCRIT 36.9 % (36-54); LYMPHOCYTES # (AUTO) 1.4 K/uL (1.0-5.5); LYMPHOCYTES % (AUTO) 23.4 % (20.5-51.5); MEAN CORPUSCULAR HEMOGLOBIN 31 pg (27-31); MEAN CORPUSCULAR HGB CONC 35 % (32-36); MEAN CORPUSCULAR VOLUME 88 fL (79.0-98.0); MONOCYTES # (AUTO) 0.3 K/uL (0.0-1.0); MONOCYTES % (AUTO) 4.6 % (1.7-9.3); NEUTROPHILS # (AUTO) 3.8 K/uL (1.8-7.7); NEUTROPHILS % (AUTO) 66.1 % (40.0-70.0)
[2023-04-29 15:44] LABS: PLATELET COUNT (AUTO) 302 K/uL (130-430); WHITE BLOOD COUNT (AUTO) 6.4 K/uL (4.8-10.8)
[2023-04-29 15:45] LABS: HEMOGLOBIN 13.1 g/dL (14.0-18.0)
[2023-04-29] MEDS ORDERED: METF-518 PO (16:10)
[2023-04-29] MEDS: NACL 0.9% 1,000 ML IV ONE (16:13)
[2023-04-29] MEDS: INSULIN REGULAR, HUMAN 10 UNITS/0.1 ML, 3 ML VIAL IVP ONE (16:54)
[2023-04-29 17:53] VITALS: BP_SYST 124; PULSE 91; RESP 18; TEMP 96.7; O2SAT 97
== END 2023-04-29 17:53 | disposition home or self-care (01) ==
LOC: SED 14:13
DX: E11.9 Type 2 diabetes mellitus without complications (principal); I10 Essential (primary) hypertension; R07.9 Chest pain, unspecified; Z88.0 Allergy status to penicillin; Z79.899 Other long term (current) drug therapy
CPT/HCPCS: 99285; 96374; 71045; 96361; 80048; 85025; 84484; 36415; 93005; 82948; J7030; J1815